=== PATIENT | female | born 1945 | race Caucasian/White ===

== ENCOUNTER 2016-08-24 10:27 | Day surgery (SDC) | payer MEDICARE, BC ==
[~2016-08-24 10:27] MED LIST: Buffered Lidocaine 0.9% SYRIN* 5 ML/SYR SYRINGE INTRADERM ONE; Buffered Lidocaine 0.9% SYRIN* 5 ML/SYR SYRINGE ONE; ceFAZolin 2 GM PREMIX(*) 2 GM/50 ML BAG IVPB ONE
[2016-08-24] MEDS ORDERED: Insulin REGULAR(*) 1 UNITS UNIT ONE (10:47)
[2016-08-24] MEDS ORDERED: Lidocaine 2% PF* 10 ML AMP ONE (12:40)
[2016-08-24] MEDS ORDERED: Midazolam* 1 MG/ML 5 ML VIAL (5 MG) ONE (13:21)
[2016-08-24] MEDS ORDERED: Propofol* 10 MG/ML 20 ML BTL IV PUSH ONE (13:26)
[2016-08-24] MEDS ORDERED: fentaNYL* 50 MCG/ML 2 ML VIAL (100 MCG VIAL) ONE (13:26)
[2016-08-24] MEDS ORDERED: fentaNYL* 50 MCG/ML 2 ML VIAL (100 MCG VIAL) IV PRN (13:29)
[2016-08-24] MEDS ORDERED: oxyCODONE TAB* 5 MG TAB PO PRN (13:29)
[2016-08-24] MEDS ORDERED: HYDROcodone/ACETAMIN 5-325 MG* 1 TAB PO PRN (13:29)
[2016-08-24] MEDS ORDERED: Ondansetron INJ* 2 MG/ML VIAL IV PRN (13:29)
[2016-08-24] MEDS ORDERED: DiMENhydriNATE IV* 50 MG/ML VIAL IV PUSH PRN (13:29)
[2016-08-24 15:34] VITALS: BP 114/49
--- NOTE | 2016-08-25 10:38 | OP ---
DATE OF OPERATION: 08/24/16 [facility] DATE OF : 47 SURGEON: Venancio Rudd MD [employer] HELPER: BAUTISTA Acosta ANESTHESIOLOGIST: Duane Jenkins MD ANESTHESIA: MAC PRE-OP DIAGNOSIS: Chronic ulcer, left great toe, interphalangeal joint. POST-OP DIAGNOSIS: Chronic ulcer, left great toe, interphalangeal joint. OPERATIVE PROCEDURE: Partial amputation left great toe. DESCRIPTION OF PROCEDURE: The patient was taken to the operating room where ankle Esmarch was administered. We made a long dorsal flap just proximal to the toe nail and a plantar flap proximal to the ulcer. Through this, we dissected over the dorsum of the proximal phalanx resecting a distal 4 to 5 mm with sagittal saw. We took local cultures, irrigated thoroughly, and dropped the tourniquet getting local hemostasis. We then closed plantar to dorsal flaps with 2-0 Vicryl and 3-0 nylon and a compression dressing applied. [id number]/[facility] #: [id number] MTDD
== END 2016-08-24 15:37 | disposition home or self-care (01) ==
LOC: OR 10:27
PROVIDERS: ATTEND Orthopaedic Surgery
DX: M86.172 Other acute osteomyelitis, left ankle and foot (principal); E11.9 Type 2 diabetes mellitus without complications; Z79.4 Long term (current) use of insulin; I48.91 Unspecified atrial fibrillation; Z79.01 Long term (current) use of anticoagulants; E78.5 Hyperlipidemia, unspecified; I10 Essential (primary) hypertension
CPT/HCPCS: 36415; 85610; 87070; 87073; 87205; 88305; 88311; J0690; J2001; J2250; J2704; J3010

== ENCOUNTER 2016-10-12 08:06 | Day surgery (SDC) | payer MEDICARE, BC ==
[~2016-10-12 08:06] MED LIST changes: -Buffered Lidocaine 0.9% SYRIN* 5 ML/SYR SYRINGE ONE; +Famotidine IV* 10 MG/ML 2 ML (20 mg) IV ONE; -ceFAZolin 2 GM PREMIX(*) 2 GM/50 ML BAG IVPB ONE
[2016-10-12] MEDS ORDERED: Famotidine IV* 10 MG/ML 2 ML (20 mg) ONE (08:12)
[2016-10-12] MEDS ORDERED: ceFAZolin 2 GM PREMIX(*) 2 GM/50 ML BAG IVPB ONE (08:13)
[2016-10-12] MEDS ORDERED: Buffered Lidocaine 0.9% SYRIN* 5 ML/SYR SYRINGE ONE (08:13)
[2016-10-12] MEDS ORDERED: Bupivacaine 0.5% SDV PF* 30 ML VIAL ONE (08:47)
[2016-10-12] MEDS ORDERED: PROCHLORPERAZINE INJ 5 MG/ML 2 ML VIAL IV PRN (08:51)
[2016-10-12] MEDS ORDERED: fentaNYL* 50 MCG/ML 2 ML VIAL (100 MCG VIAL) IV PRN (08:51)
[2016-10-12] MEDS ORDERED: HYDROcodone/ACETAMIN 5-325 MG* 1 TAB PO PRN (08:51)
[2016-10-12] MEDS ORDERED: oxyCODONE/Acetamin 5/325 MG* TAB PO PRN (08:51)
[2016-10-12] MEDS ORDERED: fentaNYL* 50 MCG/ML 2 ML VIAL (100 MCG VIAL) ONE (08:56)
[2016-10-12] MEDS ORDERED: Midazolam* 1 MG/ML 5 ML VIAL (5 MG) ONE (08:56)
[2016-10-12] MEDS ORDERED: Propofol* 10 MG/ML 20 ML BTL IV PUSH ONE (09:17)
[2016-10-12] MEDS ORDERED: Lidocaine 2% PF * 5 ML VIAL ONE (09:17)
[2016-10-12] MEDS ORDERED: Lidocaine 2% PF* 10 ML AMP ONE (09:19)
[2016-10-12 11:01] VITALS: BP 137/78
--- NOTE | 2016-10-13 12:43 | OP ---
DATE OF OPERATION: 10/12/16 - [facility] DATE OF : 47 SURGEON: Venancio Rudd MD PAYER SPECIALIST: Leda Monsivais PA-C ANESTHESIOLOGIST: Tate Singh MD ANESTHESIA: MAC PRE-OP DIAGNOSES: Chronic ulceration, left second, third toe tips, hammertoe, fourth and fifth. POST-OP DIAGNOSES: Chronic ulceration, left second, third toe tips; hammertoe, fourth and fifth. OPERATIVE PROCEDURE: Partial amputation, left two, three, four, and five toes. DESCRIPTION OF PROCEDURE: The patient was taken to the operating room where ankle Esmarch was applied with local 2% lidocaine. We made transverse elliptical incisions over more or less the middle phalanx of each toe, two, three, four, and five. We then dissected proximally to the PIP joint, which was disarticulated of each toe. Thorough irrigation was performed and then we dropped the tourniquet for local hemostasis. Interrupted nylon sutures were used to close the amputations of two, three, four, and five. The toes sent to Pathology. We then dressed sterilely with a compressive bandage. [id number]/[facility] #: [id number] [facility]
== END 2016-10-12 11:05 | disposition home or self-care (01) ==
LOC: OR 08:06
PROVIDERS: ATTEND Orthopaedic Surgery
DX: E11.621 Type 2 diabetes mellitus with foot ulcer (principal); L97.529 Non-pressure chronic ulcer of other part of left foot with unspecified severity; E11.628 Type 2 diabetes mellitus with other skin complications; M86.672 Other chronic osteomyelitis, left ankle and foot; M20.42 Other hammer toe(s) (acquired), left foot; E66.9 Obesity, unspecified; I48.91 Unspecified atrial fibrillation; M10.9 Gout, unspecified; F32.9 Major depressive disorder, single episode, unspecified; Z79.01 Long term (current) use of anticoagulants; Z79.4 Long term (current) use of insulin; Z79.84 Long term (current) use of oral hypoglycemic drugs; Z87.891 Personal history of nicotine dependence; Z88.8 Allergy status to other drugs, medicaments and biological substances
CPT/HCPCS: 88305; 88311; J0690; J2001; J2250; J2704; J3010

== ENCOUNTER 2023-04-29 06:45 | Observation (INO) ==
[2023-04-29] MEDS ORDERED: Famotidine IV 10 MG/ML 2 ml VIAL (20 mg) ONE (07:02)
[2023-04-29] MEDS ORDERED: ceFAZolin 2 GM PREMIX 2 GM/50 ML BAG ONE (07:02)
[2023-04-29] MEDS ORDERED: fentaNYL 100 mcg/2 ml 50 MCG/ML VIAL ONE ×2 (07:04→12:34)
[2023-04-29] MEDS ORDERED: Midazolam 5 mg/5 ml VIAL 1 mg/ml 5 ml VIAL (5 mg) ONE (07:04)
[2023-04-29] MEDS ORDERED: Dexamethasone IV 4 MG/ML VIAL 1 ml VIAL ONE ×2 (07:05→09:00)
[2023-04-29] MEDS ORDERED: Sterile Water for Inj 10 ML ONE (07:05)
[2023-04-29] MEDS ORDERED: Ondansetron 4 mg VIAL 2 MG/ML 2 ml VIAL ONE (07:05)
[2023-04-29] MEDS ORDERED: Phenylephrine IV 10 MG/ML 1 ml VIAL ONE (07:05)
[2023-04-29] MEDS ORDERED: Lidocaine 2% PF 5 ML VIAL ONE (07:05)
[2023-04-29 07:35] LABS: Rapid COVID-19 Molecular Undetected (Undetected)
[2023-04-29] MEDS: Famotidine IV 10 MG/ML 2 ml VIAL (20 mg) IV ONE (07:41)
[2023-04-29] MEDS ORDERED: ROPIVACAINE 5 MG/ML 30 ML BTL (0.5%) ONE (08:30)
[2023-04-29] MEDS ORDERED: Ondansetron 4 mg VIAL 2 MG/ML 2 ml VIAL IV PRN (08:36)
[2023-04-29] MEDS ORDERED: Naloxone 0.4 mg VIAL 0.4 mg/ml 1 ml VIAL IV PRN (08:36)
[2023-04-29] MEDS ORDERED: Acetaminophen IV 1 GM/100ML 1,000 MG/100 ML BAG IV ONE (09:23)
[2023-04-29] MEDS ORDERED: Tranexamic Acid 1 GM/100ML BAG 2,000 MG/200 ML BAG IV ONE (09:23)
[2023-04-29] MEDS ORDERED: Desflurane 240 ML INH ONE (10:55)
[2023-04-29] MEDS ORDERED: Morphine 2 MG/ML SYRINGE IV PRN (11:56)
[2023-04-29] MEDS ORDERED: Lactulose 30 ml UDC PO PRN (11:56)
[2023-04-29] MEDS ORDERED: Prochlorperazine 5 mg/ml 2 ml VIAL (10 mg) IV PRN (12:13)
[2023-04-29] MEDS: fentaNYL 100 mcg/2 ml 50 MCG/ML VIAL IV PRN (12:35)
[2023-04-29] MEDS: Lactated Ringers 1000 ml BAG 1,000 ML IV SCH ×2 (14:36→16:20)
[2023-04-29] MEDS ORDERED: Dextrose 50% Syringe 50 ml 25 GM/50 ML SYRINGE IV PUSH PRN (15:26)
[2023-04-29] MEDS ORDERED: Insulin ASPART (NF) 1 UNIT SUBCUT SCH (16:00)
[2023-04-29] MEDS: ceFAZolin 1 GM ADVAN 1 GM in NS 0.9% 50 ML 50 ML IVPB SCH (17:31)
[2023-04-29] MEDS: Insulin GLARGINE 100 un/ml 10 ml VIAL SUBCUT SCH (21:39)
[2023-04-29] MEDS: DULoxetine DR 30 mg CAP PO SCH (21:41)
[2023-04-29] MEDS: Magnesium Hydroxide LIQ 30 ML UDC PO SCH (21:42)
[2023-04-29] MEDS: Buffered Lidocaine 1% SYRIN 1 ml INTRADERM ONE (23:39)
[2023-04-30 06:05] LABS: Hematocrit 24.1 % (35-45); Hemoglobin 8.2 g/dL (11.5-14.3); Mean Platelet Volume 7.5 fL (7.5-11.2); Platelet Count 259 10^3/uL (150-450)
[2023-04-30 06:25] LABS: Calcium 9.2 mg/dL (8.6-10.3); Creatinine, Serum 1.26 mg/dL (0.51-0.95); Potassium 4.5 mmol/L (3.5-5.0)
[2023-04-30] MEDS: Vitamin THERAPEUTIC TAB PO SCH (07:51)
[2023-04-30] MEDS: Magnesium Hydroxide LIQ 30 ML UDC PO PRN (07:51)
[2023-04-30] MEDS: CMCS:Simvastatin 10 mg TAB (NF) PO SCH (07:53)
[2023-04-30 11:29] VITALS: BP 124/62
== END 2023-04-30 12:33 | disposition home or self-care (01) ==
LOC: OR 06:45 → SSU 06:45
PROVIDERS: ADMIT Orthopaedic Surgery Adult Reconstructive Orthopaedic Surgery; ATTEND Orthopaedic Surgery Adult Reconstructive Orthopaedic Surgery